=== PATIENT | female | born 1970 | race African-American/Black ===

== ENCOUNTER 2023-12-23 15:38 | Inpatient (IN) | payer MEDICAID ==
[~2023-12-23] VITALS: Ht 160 cm; Wt 96.4 kg
[2023-12-23 16:12] LABS: Basophils # (auto) 0.1 10 ^3/uL (0-0.2); Basophils % (auto) 0.9 % (0.0-2.0); Eosinophils # (auto) 0.1 10 ^3/uL (0-0.8); Eosinophils % (auto) 0.8 % (0.0-7.0); Hematocrit 37.8 % (36.0-46.0); Hemoglobin 12.8 g/dL (12.2-16.2); Lymphocytes # (auto) 3.1 10 ^3/uL (0.4-5.4); Lymphocytes % (auto) 26.5 % (10.0-50.0); Mean Corpuscular Hemoglobin 30.5 pg (28.0-32.0); Mean Corpuscular Hgb Conc. 33.8 g/dL (32.0-36.0); Mean Corpuscular Volume 90.4 fL (80.0-100.0); Monocytes # (auto) 0.6 10 ^3/uL (0-1.3); Monocytes % (auto) 5.1 % (0.0-12.0); Neutrophils # (auto) 7.8 10 ^3/uL (1.6-8.6); Neutrophils % (auto) 66.7 % (37.0-80.0); Platelet Count (auto) 437 10^3/uL (140-450); Red Blood Cells 4.18 10^6/uL (4.0-5.20); Red Cell Distribution Width 12.6 % (11.8-14.3); White Blood Cell 11.7 10^3/uL (4.4-10.8)
[2023-12-23 16:22] LABS: Chloride 105 mmol/L (98-107); Potassium 3.2 mmol/L (3.5-5.1); Sodium 140 mmol/L (136-145)
[2023-12-23 16:23] LABS: Anion Gap 9 (5-15); Carbon Dioxide 26 mmol/L (20-30)
[2023-12-23 16:24] LABS: Calcium 10.4 mg/dL (8.7-10.4)
[2023-12-23 16:28] LABS: BUN/Creatinine Ratio 9.7 (10.0-20.0); Blood Urea Nitrogen 10 mg/dL (9-23); Glucose 110 mg/dL (74-106)
[2023-12-23 16:34] LABS: Urine Bacteria FEW /hpf (None Seen); Urine Blood Negative /uL (Negative); Urine Clarity Clear (Clear); Urine Color Light-Yellow (Yellow); Urine Mucus FEW (None Seen); Urine Protein, UAD TRACE (Negative); Urine Specific Gravity 1.018 (1.001-1.035); Urine Urobilinogen Normal (Negative); Urine WBC 1 /hpf (0 - 5); Urine pH 6.5 (5.0-9.0)
[2023-12-23 18:06] LABS: COVID19 ANTIGEN SOFIA FIA NEGATIVE (NEGATIVE)
[2023-12-23] MEDS ORDERED: ACETAMINOPHEN 325 MG TAB PO PRN (21:15)
[2023-12-23] MEDS ORDERED: MORPHINE SULFATE INJ 2 MG/ml SYRG IV PRN (21:15)
[2023-12-23] MEDS ORDERED: DOCUSATE SOD 100 MG CAP PO PRN (21:15)
[2023-12-23] MEDS ORDERED: NITROGLYCERIN 0.4 MG SL TAB SL PRN (21:15)
[2023-12-23] MEDS: POTASSIUM CHL 20 Meq TABLET PO ONE (22:55)
[2023-12-23] MEDS: ATORVASTATIN 20 MG TAB PO SCH (22:55)
[2023-12-23] MEDS: SODIUM CHLOR 0.9% PF (SALINE LOCK) 10ML VIAL/SYR IV SCH (22:55)
[2023-12-24] VITALS (7 sets, daily range): BP systolic 132–147; BP diastolic 64–77; PULSE 54–78; RESP 16–21; TEMP 97.6–97.7; O2SAT 96–100
[2023-12-24 05:27] LABS: Basophils # (auto) 0 10 ^3/uL (0-0.2); Basophils % (auto) 0.3 % (0.0-2.0); Eosinophils # (auto) 0 10 ^3/uL (0-0.8); Eosinophils % (auto) 0.4 % (0.0-7.0); Hemoglobin 12.1 g/dL (12.2-16.2); Lymphocytes # (auto) 2.1 10 ^3/uL (0.4-5.4); Lymphocytes % (auto) 18.4 % (10.0-50.0); Mean Corpuscular Hemoglobin 31.2 pg (28.0-32.0); Mean Corpuscular Hgb Conc. 34.5 g/dL (32.0-36.0); Mean Corpuscular Volume 90.3 fL (80.0-100.0); Monocytes # (auto) 0.6 10 ^3/uL (0-1.3); Monocytes % (auto) 5.4 % (0.0-12.0); Neutrophils # (auto) 8.6 10 ^3/uL (1.6-8.6); Neutrophils % (auto) 75.5 % (37.0-80.0); Nucleated Red Blood Cells % 0.1 %; Platelet Count (auto) 399 10^3/uL (140-450); Red Blood Cells 3.87 10^6/uL (4.0-5.20); Red Cell Distribution Width 12.6 % (11.8-14.3); White Blood Cell 11.3 10^3/uL (4.4-10.8)
[2023-12-24 05:44] LABS: Alanine Aminotransferase 12 U/L (7-40); Albumin 4.1 g/dL (3.2-4.8); Alkaline Phosphatase 88 U/L (46-116); Anion Gap 7 (5-15); Aspartate Aminotransferase 13 U/L (13-40); BUN/Creatinine Ratio 10.3 (10.0-20.0); Blood Urea Nitrogen 10 mg/dL (9-23); Calcium 10.2 mg/dL (8.7-10.4); Carbon Dioxide 26 mmol/L (20-30); Chloride 107 mmol/L (98-107); Glucose 99 mg/dL (74-106); Potassium 4.2 mmol/L (3.5-5.1); Sodium 140 mmol/L (136-145)
[2023-12-24 05:45] LABS: Bilirubin, Total 0.5 mg/dL (0.2-1.0); Total Protein 7.8 g/dL (5.7-8.2)
[2023-12-24] MEDS ORDERED: ATEN50TA PO (10:06)
[2023-12-24] MEDS ORDERED: ATOR40TA52 PO (10:06)
[2023-12-24] MEDS ORDERED: FLUT50SP NAS (10:06)
[2023-12-24] MEDS ORDERED: DICL1GEL73 TOP (10:06)
[2023-12-24] MEDS ORDERED: MELO15TA29 PO (10:06)
[2023-12-24] MEDS ORDERED: HYDR25TA5 PO (10:06)
[2023-12-24] MEDS ORDERED: LOSA-535 PO (10:06)
[2023-12-24] MEDS: amLODIPine BESYLATE 5 MG TAB PO SCH (10:13)
[2023-12-24] MEDS: ASPirin 81 mg TAB PO SCH (10:13)
[2023-12-24] MEDS: LOSARTAN POTASSIUM 50 MG TAB PO SCH (10:14)
[2023-12-24] MEDS: IOHEXOL 350 MG/ML 100ML IJ ONE (15:39)
[2023-12-24] MEDS: HYDROcodone-ACET 5/325MG TAB PO PRN (16:09)
[2023-12-24] MEDS: ONDANSETRON HCL 4 MG/2 ML VIAL IV PRN (16:09)
[2023-12-24 16:49] LABS: Free T3 3.16 pg/mL (2.3-4.2); Free T4 (Free Thyroxine) 1.21 ng/dL (0.89-1.76)
[2023-12-24] MEDS: ATENOLOL 25 MG TAB PO SCH (21:30)
[2023-12-24] MEDS: LORazepam 2MG/ML-1ML VIAL IV PRN (21:45)
[2023-12-24] MEDS ORDERED: LORazepam 2MG/ML-1ML VIAL IV PRN (22:30)
[2023-12-25] VITALS (9 sets, daily range): BP systolic 108–153; BP diastolic 52–75; PULSE 38–89; RESP 16–20; TEMP 97.3–98.9; O2SAT 96–100
[2023-12-25] MEDS: hydrALAZINE HCL 20 MG/ML VL IV PRN (05:24)
[2023-12-25 07:55] LABS: Basophils # (auto) 0 10 ^3/uL (0-0.2); Basophils % (auto) 0.4 % (0.0-2.0); Eosinophils # (auto) 0.1 10 ^3/uL (0-0.8); Eosinophils % (auto) 0.6 % (0.0-7.0); Hematocrit 35.9 % (36.0-46.0); Hemoglobin 12.5 g/dL (12.2-16.2); Lymphocytes % (auto) 23.8 % (10.0-50.0); Mean Corpuscular Hemoglobin 31.7 pg (28.0-32.0); Mean Corpuscular Hgb Conc. 34.9 g/dL (32.0-36.0); Monocytes # (auto) 0.4 10 ^3/uL (0-1.3); Monocytes % (auto) 4.8 % (0.0-12.0); Neutrophils # (auto) 6.1 10 ^3/uL (1.6-8.6); Neutrophils % (auto) 70.4 % (37.0-80.0); Platelet Count (auto) 403 10^3/uL (140-450); Red Blood Cells 3.94 10^6/uL (4.0-5.20); Red Cell Distribution Width 12.5 % (11.8-14.3); White Blood Cell 8.6 10^3/uL (4.4-10.8)
[2023-12-25 08:19] LABS: Chloride 105 mmol/L (98-107); Potassium 3.4 mmol/L (3.5-5.1); Sodium 139 mmol/L (136-145)
[2023-12-25 08:20] LABS: Anion Gap 5 (5-15); Calcium 10.1 mg/dL (8.7-10.4); Carbon Dioxide 29 mmol/L (20-30)
[2023-12-25 08:25] LABS: BUN/Creatinine Ratio 8.4 (10.0-20.0); Blood Urea Nitrogen 9 mg/dL (9-23); Glucose 98 mg/dL (74-106)
[2023-12-25] MEDS: POTASSIUM CHL 20 Meq TABLET PO STA (09:47)
[2023-12-25] MEDS: hydroCHLOROthiazide 25 MG TAB PO SCH (09:49)
[2023-12-26 01:00] VITALS: BP 110/91; PULSE 59; RESP 20; TEMP 98; O2SAT 95
[2023-12-26 05:00] VITALS: BP 137/61; PULSE 68; RESP 22; TEMP 97.9; O2SAT 98
[2023-12-26 06:41] LABS: Basophils # (auto) 0 10 ^3/uL (0-0.2); Basophils % (auto) 0.4 % (0.0-2.0); Eosinophils # (auto) 0.1 10 ^3/uL (0-0.8); Eosinophils % (auto) 1.3 % (0.0-7.0); Hematocrit 35.4 % (36.0-46.0); Hemoglobin 12.6 g/dL (12.2-16.2); Lymphocytes # (auto) 2.4 10 ^3/uL (0.4-5.4); Lymphocytes % (auto) 24.3 % (10.0-50.0); Mean Corpuscular Hemoglobin 32.5 pg (28.0-32.0); Mean Corpuscular Hgb Conc. 35.7 g/dL (32.0-36.0); Mean Corpuscular Volume 91.1 fL (80.0-100.0); Monocytes # (auto) 0.6 10 ^3/uL (0-1.3); Neutrophils # (auto) 6.8 10 ^3/uL (1.6-8.6); Platelet Count (auto) 393 10^3/uL (140-450); Red Blood Cells 3.89 10^6/uL (4.0-5.20); Red Cell Distribution Width 12.7 % (11.8-14.3)
[2023-12-26 06:58] LABS: Alanine Aminotransferase 12 U/L (7-40); Alkaline Phosphatase 84 U/L (46-116); Anion Gap 9 (5-15); BUN/Creatinine Ratio 10.7 (10.0-20.0); Blood Urea Nitrogen 11 mg/dL (9-23); Calcium 9.9 mg/dL (8.7-10.4); Carbon Dioxide 26 mmol/L (20-30); Chloride 105 mmol/L (98-107); Glucose 92 mg/dL (74-106); Potassium 3.7 mmol/L (3.5-5.1); Sodium 140 mmol/L (136-145)
[2023-12-26 06:59] LABS: Aspartate Aminotransferase 11 U/L (13-40)
[2023-12-26 07:00] LABS: Albumin 4.2 g/dL (3.2-4.8); Bilirubin, Total 0.6 mg/dL (0.2-1.0); Total Protein 7.5 g/dL (5.7-8.2)
[2023-12-26 08:00] VITALS: PULSE 50
[2023-12-26 08:46] VITALS: BP 133/78; PULSE 69; RESP 16; TEMP 98.2; O2SAT 99
[2023-12-26] MEDS: LORazepam 2MG/ML-1ML VIAL IM STA (09:24)
[2023-12-26] MEDS: CITALOPRAM HYDROBR 20 MG TAB PO SCH (10:30)
[2023-12-26] MEDS: ATENOLOL 25 MG TAB PO SCH (12:35)
[2023-12-26 12:37] VITALS: BP 131/62; PULSE 54; TEMP 36.8
[2023-12-26 13:00] VITALS: BP 131/62; PULSE 54; RESP 17; TEMP 97.9; O2SAT 100
[2023-12-26] MEDS ORDERED: CITA-77 PO (13:02)
[2023-12-26] MEDS ORDERED: AML5T PO (13:02)
[2023-12-26] MEDS ORDERED: ATEN25TA PO (13:02)
[2023-12-26] MEDS ORDERED: ASPI-325 PO (13:02)
[2023-12-26] MEDS ORDERED: TRAZ-227 PO (13:02)
[2023-12-26] MEDS ORDERED: traZODone HCL 50 MG TAB PO SCH (22:00)
== END 2023-12-26 16:20 | disposition home or self-care (01) | DRG 305 ==
LOC: ER 15:38 → OVERFLOW 21:16 → TELE 22:22 → TELE-WESTW 12-24 09:40
PROVIDERS: ADMIT Internal Medicine Pulmonary Disease; ATTEND Emergency Medicine
DX: I16.0 Hypertensive urgency (principal); E11.9 Type 2 diabetes mellitus without complications; E78.5 Hyperlipidemia, unspecified; E87.6 Hypokalemia; E83.51 Hypocalcemia; D64.9 Anemia, unspecified; F40.240 Claustrophobia; I65.22 Occlusion and stenosis of left carotid artery; Z20.822 Contact with and (suspected) exposure to COVID-19; F41.1 Generalized anxiety disorder; R25.1 Tremor, unspecified; Z83.3 Family history of diabetes mellitus; Z82.49 Family history of ischemic heart disease and other diseases of the circulatory system; Z90.49 Acquired absence of other specified parts of digestive tract; Z80.3 Family history of malignant neoplasm of breast
CPT/HCPCS: 36415; 70496; 71046; 80048; 80053; 81001; 82607; 82962; 84439; 84443; 84481; 84484; 85025; 85379; 87426; 93005; 93306; 93886; G0378; J2405